=== PATIENT | female | born 1995 | race Caucasian/White ===

== ENCOUNTER → 2016-02-14 | Outpatient (REF) | payer OTHER ==
[2016-02-14 18:18] LABS: INR 1.01
== END | disposition home or self-care (01) ==
LOC: M LAB REF 17:00
PROVIDERS: ATTEND Nurse Practitioner Family
DX: R04.0 Epistaxis (principal)

== ENCOUNTER → 2019-12-20 | Outpatient (REF) | payer OTHER ==
[2019-12-21 13:07] LABS: FOLATE 18.2 NG/ML
== END ==
LOC: M LAB REF 16:32
PROVIDERS: ATTEND Registered Nurse
DX: R53.83 Other fatigue (principal)

== ENCOUNTER → 2022-09-09 | Outpatient (CLI) | payer OTHER | LOC: M WUC 15:09 | PROVIDERS: ATTEND Physician Assistant Medical | DX: M25.561 Pain in right knee (principal) ==

== ENCOUNTER → 2023-03-11 | Outpatient (CLI) | payer OTHER | LOC: M RAD 15:38 | PROVIDERS: ATTEND Physician Assistant Medical | DX: R10.2 Pelvic and perineal pain (principal) ==